=== PATIENT | female | born 1950 | race Caucasian/White ===

== ENCOUNTER 2023-02-23 05:30 | Emergency (ER) | payer MEDICARE, OTHER ==
[2023-02-23] MEDS ORDERED: Ondansetron PF 4 MG/2 ML Vial ONE (05:41)
[2023-02-23] MEDS ORDERED: Morphine 4 MG/ML VIAL ONE (05:41)
[2023-02-23 05:57] LABS: #Basophils 0.1 thou/uL (0.0-0.2); #Eosinphils 0.4 thou/uL (0.0-0.7); #Monocytes 1.4 thou/uL (0.11-0.59); #Neutrophils 18.2 thou/uL (1.40-6.50); %Basophils 0.4 % (0.0-1.0); %Eosinophils 1.6 % (0.0-10.0); %Lymphocytes 15.6 % (21.0-51.0); %Monocytes 5.8 % (0.0-10.0); %Neutrophils 75.5 % (42.0-75.0); Hematocrit 37.4 % (36.0-47.0); Hemoglobin 13.5 g/dL (12.0-16.0); Mean Corpuscular HGB CONC 36.1 g/dL (32.0-36.0); Mean Corpuscular Hemoglobin 31.5 pg (27.0-31.0); Mean Corpuscular Volume 87.4 fl (78.0-98.0); Mean Platelet Volume 9.4 fL (7.4-10.4); Platelet Count 404 10x3/uL (130-400); RBC Distribution Width 13.5 % (11.5-14.5); Red Blood Cell (RBC) Count 4.28 mill/uL (4.20-5.40); White Blood Cell (WBC) Count 24.1 10x3/uL (4.8-10.8)
[2023-02-23 06:26] LABS: PTT 27.2 sec (22.9-36.1); Prothrombin Time 12.9 sec (12.0-14.7)
[2023-02-23 06:30] LABS: ALT (SGPT) 18 U/L (8-55); AST (SGOT) 18 U/L (5-34); Albumin 4.3 g/dL (3.4-4.8); Alkaline Phosphatase 81 U/L (40-110); Anion Gap 16 mmol/L (10-20); BUN (Urea Nitrogen) 16 mg/dL (9.8-20.1); Bilirubin, Total 0.4 mg/dL (0.2-1.2); Calc. Creatinine Clearance 0 mL/min (70-130); Calcium 9.2 mg/dL (7.8-10.44); Carbon Dioxide 22 mmol/L (23-31); Chloride 98 mmol/L (98-107); Estimated GFR 72; Globulin 2.9 g/dL (2.4-3.5); Glucose 236 mg/dL (83-110); Potassium 3.1 mmol/L (3.5-5.1); Protein, Total 7.2 g/dL (5.8-8.1); Sodium 133 mmol/L (136-145)
[2023-02-23] MEDS ORDERED: PROPOFOL 20 ML ONE (06:39)
[2023-02-23] MEDS ORDERED: fentaNYL 50 mcg/mL 1 mL Vial ONE (08:03)
[2023-02-23] MEDS ORDERED: Boostrix 0.5 ML (Tdap) VIAL (>/=7 yrs of age) ONE (08:32)
[2023-02-23] MEDS ORDERED: cefTRIAXone (ROCEPHIN) 2 GM VIAL ONE (08:32)
[2023-02-23] MEDS ORDERED: Sodium Chloride 0.9% 100 ML ONE (08:32)
[2023-02-23] MEDS ORDERED: Vancomycin 1 GM/200 ML (FROZEN) BAG ONE (08:32)
== END 2023-02-23 10:05 | disposition short-term general hospital (02) ==
LOC: ERS 05:30
DX: S02.832A Fracture of medial orbital wall, left side, initial encounter for closed fracture (principal); S05.22XA Ocular laceration and rupture with prolapse or loss of intraocular tissue, left eye, initial encounter; S43.015A Anterior dislocation of left humerus, initial encounter; I10 Essential (primary) hypertension; Z79.899 Other long term (current) drug therapy; W18.30XA Fall on same level, unspecified, initial encounter
CPT/HCPCS: 23650; 70450; 72125; 73030 ×2; 73060; 80053; 83605; 85025; 85610; 85730; 90471; 90715; 96365; 96367; 96375; 99156; 99157; 99285; J3010; J3370; 36415; G0390; J0696; J2270; J2405; J2704; J3490